=== PATIENT | female | born 1990 | race Caucasian/White ===

== ENCOUNTER → 2019-10-18 | Day surgery (SDC) | payer OTHER ==
[~2019-10-18] MED LIST: ACETAMINOPHEN 1000 MG/100 ML IV ONE; DEXAMETHASONE SOD PHOS 10 MG/1 ML VIAL ONE; DEXAMETHASONE SOD PHOS INJ 4 MG/ML VIAL ONE; FENTANYL CITRATE/PF 100MCG/2 ML INJ ONE; FLUOXETINE HCL10 MG PO; GLYCOPYRROLATE INJ 0.2 MG/ML VIAL ONE; LIDOCAINE 1% W/EPINEPHRINE 20 ML VIAL ONE; LIDOCAINE HCL 2% JELLY 5 ML TUBE ONE; LIDOCAINE HCL 2% LOCAL INJ 5 ML SDV VIAL INJ ONE; MIDAZOLAM HCL 2 MG/2 ML VIAL ONE; NEOSTIGMINE 1 MG/ML 10ML VIAL ONE; ONDANSETRON HCL INJ 2MG/ML 2ML 2 MG/ML VIAL ONE; PROPOFOL IV EMULSION 10 MG/ML 20 ML VIAL ONE; ROCURONIUM BROMIDE 10 MG/ML 5ML VIAL IV ONE; SEVOFLURANE INHAL SOLN 250 ML PEN BTL ONE
--- NOTE | 2019-10-18 08:55 | Pre Op History & Physical ---
DATE OF SURGERY: October 17, 2019. CHIEF COMPLAINT: Right thyroid nodule. HISTORY OF PRESENT ILLNESS: This 29-year-old female was noted to have a lesion in the right thyroid, which was quite noticeable. Mother also has a history of thyroid nodule. The patient when first seen in August of 2019, had no dysphagia, odynophagia, or hoarseness. The patient has no radiation to the head and neck area. An ultrasound of thyroid showed the patient has a 3.5 x 2.1 x 2.6 cm nodule in the right thyroid in the inferior pole and a 2 cm nodule in the left lobe. The patient initially was scheduled for surgery in August of 2019, however, that was canceled because of the coronavirus restriction on emergency surgery only. The patient over the past few weeks has noted that the right neck has been increasing in size and giving her dysphagia even though she has no choking. The patient was quite anxious about her swallowing. REVIEW OF SYSTEMS: System review showed no recent cardiovascular, respiratory, or GI problem. PAST MEDICAL HISTORY: The patient has no significant medical problem. PAST SURGICAL HISTORY: She has wisdom teeth extraction. ALLERGIES: SHE IS ALLERGIC TO BACTRIM, AUGMENTIN, AND SULFA. MEDICATIONS: She is on fluoxetine. SOCIAL HISTORY: She is a nonsmoker and nondrinker. FAMILY HISTORY: Noncontributory. Ms. Jackson has bilateral thyroid nodules. The larger one being on the right side and the right thyroid nodule seems to be increasing in size over the past few weeks and has been irritating the patient affecting her activity of daily living. The suggested treatment is right thyroidectomy, possible total thyroidectomy and other necessary procedure along with possible fine-needle aspiration of the left thyroid nodule and other necessary procedure. Complication of procedure includes but not limited to bleeding, infection, perforation of the esophagus, pneumomediastinum, mediastinitis, voice change, recurrent laryngeal nerve injury, trouble swallowing, dysphagia, wound breakdown, poor cosmetic result, persistent recurrence of the problem and hypercalcemia, hypocalcemia, hyperthyroidism, hypothyroidism, persistent recurrence of the problem. Alternatives will be continue observation, needle aspiration of the nodules on either side. Thyroid suppression therapy. The patient has elected to undergo surgical procedure. MD LAYNE Taylor/MODL /[id number] cc: Kyle Prieto MD
[2019-10-18 10:10] VITALS: BP 128/78
--- NOTE | 2019-10-18 11:31 | Operative Report ---
DATE OF PROCEDURE: 10/18/2019 SURGEON: Sukhwinder Bobo MD CHIEF COMPLAINT: Bilateral thyroid nodules, bigger one on the right side. POSTOPERATIVE DIAGNOSIS: Bilateral thyroid nodules, bigger one on the right side. OPERATIVE PROCEDURE: Right thyroidectomy and FNA of the left thyroid nodule with appropriate closure. ANESTHESIA: Anesthesiology Group. HISTORY OF PRESENT ILLNESS: This 29-year-old female was noted to have a lesion in the right thyroid, which is increasing in size. Ultrasound of the thyroid showed that the patient has bilateral nodules, the right side about 3.5 cm, left side about 2 cm. The prominent nodule was on the right side on examination. The patient has no dysphagia, odynophagia, or hoarseness even though over the past 2 or 3 weeks, the dysphagia seems to have increased. The patient also noted that the lesion seems to have been increasing in size. The patient has no radiation to the head and neck area. She has no family history of thyroid problem. She declined needle aspiration. It was decided that right thyroidectomy and a fine-needle aspiration of the left thyroid nodule and other necessary procedure will be beneficial for her. DESCRIPTION OF PROCEDURE: The patient was taken to operating room, put under general anesthesia, endotracheally intubated. The neck was injected with 1% Xylocaine with 1:100,000 epinephrine for hemostasis. Dissection was carried down to the subplatysmal plane. The superior and inferior flap were elevated. The strap muscle was identified and this was . The strap muscle was retracted laterally to the right side. The superior pole of the thyroid was dissected with the Harmonic scalpel. The thyroid gland was rotated inferiorly and medially. The superior parathyroid gland was not disturbed. Thyroid gland was delivered. The thyroid gland was transected in the isthmus using the Harmonic scalpel. The inferior pole of the thyroid was dissected from the surrounding soft tissue using the Harmonic scalpel. The inferior parathyroid gland was identified and not disturbed. The recurrent laryngeal nerve was identified, again this was not disturbed. The thyroid gland was dissected from the Perez's ligament and delivered, and sent for frozen section. The frozen section returned as adenomatous nodule. Using a 3 mL syringe and 21-gauge needle. The left thyroid nodule was addressed and the fine-needle aspiration was attempted on the left thyroid nodule. This was sent for cytology. Closure of the area was undertaken. The tracheoesophageal groove on the right side was irrigated with copious amount of normal saline. Any bleeding area was controlled using the bipolar cautery. The strap muscle was advanced in the midline and closed on itself using 3-0 Vicryl suture with one mattress suture. The platysmal flap that was elevated was advanced in the midline and closed on itself using 3-0 Vicryl suture in the interrupted fashion. The skin incision was closed using 4-0 Monocryl suture in the interrupted fashion. The pressure dressing was applied. The patient tolerated the above procedure well with minimal blood loss. She was able to be transferred to recovery room in stable condition. Sukhwinder Bobo MD DKH/MODL /[id number] cc: Kyle Prieto MD
== END | disposition home or self-care (01) ==
LOC: OR 06:09
PROVIDERS: ATTEND Otolaryngology Otolaryngology/Facial Plastic Surgery
DX: E04.1 Nontoxic single thyroid nodule (principal); F41.9 Anxiety disorder, unspecified; Z88.1 Allergy status to other antibiotic agents; Z88.0 Allergy status to penicillin; Z88.2 Allergy status to sulfonamides; Z01.812 Encounter for preprocedural laboratory examination; Z11.59 Encounter for screening for other viral diseases
CPT/HCPCS: 10021; 60220; 81025; 87635; 88307; 88331; J0131; J1100 ×2; J2001 ×2; J2250; J2405; J2704; J2710; J3010; 88305

== ENCOUNTER 2020-04-23 07:05 | Emergency (ER) | payer BC, OTHER ==
[~2020-04-23] VITALS: Ht 160 cm; Wt 102.1 kg
[~2020-04-23 07:05] MED LIST changes: -ACETAMINOPHEN 1000 MG/100 ML IV ONE; -DEXAMETHASONE SOD PHOS 10 MG/1 ML VIAL ONE; -DEXAMETHASONE SOD PHOS INJ 4 MG/ML VIAL ONE; -FENTANYL CITRATE/PF 100MCG/2 ML INJ ONE; -GLYCOPYRROLATE INJ 0.2 MG/ML VIAL ONE; -LIDOCAINE 1% W/EPINEPHRINE 20 ML VIAL ONE; -LIDOCAINE HCL 2% JELLY 5 ML TUBE ONE; -LIDOCAINE HCL 2% LOCAL INJ 5 ML SDV VIAL INJ ONE; -MIDAZOLAM HCL 2 MG/2 ML VIAL ONE; -NEOSTIGMINE 1 MG/ML 10ML VIAL ONE; -ONDANSETRON HCL INJ 2MG/ML 2ML 2 MG/ML VIAL ONE; -PROPOFOL IV EMULSION 10 MG/ML 20 ML VIAL ONE; -ROCURONIUM BROMIDE 10 MG/ML 5ML VIAL IV ONE; -SEVOFLURANE INHAL SOLN 250 ML PEN BTL ONE
[2020-04-23] MEDS ORDERED: KETOROLAC TROMETHAMINE 60 MG/2 ML VIAL IM ONE (07:30)
[2020-04-23] MEDS ORDERED: DIAZEPAM 5 MG TAB PO PRN (07:30)
[2020-04-23] MEDS ORDERED: DIAZEPAM 5 MG TAB PO ONE (08:00)
[2020-04-23] MEDS ORDERED: HYDROCODONE/APAP 5MG-325MG TAB PO ONE (08:00)
[2020-04-23] MEDS ORDERED: LIDOPATCH1 EACH TOP (09:17)
[2020-04-23] MEDS ORDERED: NAPROXEN250 MG PO (09:17)
[2020-04-23] MEDS ORDERED: ROBAXIN-750750 MG PO (09:17)
[2020-04-23] MEDS ORDERED: ULTRAM50 MG PO (09:17)
== END 2020-04-23 09:33 | disposition home or self-care (01) ==
LOC: ER 08:01
DX: M54.12 Radiculopathy, cervical region (principal); M62.838 Other muscle spasm
CPT/HCPCS: 72125; 99284; J1885

== ENCOUNTER 2020-04-29 10:35 | Emergency (ER) | payer BC ==
[~2020-04-29] VITALS: Ht 160 cm; Wt 102.1 kg
[~2020-04-29 10:35] MED LIST changes: +LIDOPATCH1 EACH TOP; +NAPROXEN250 MG PO; +ROBAXIN-750750 MG PO; +ULTRAM50 MG PO
[2020-04-29] MEDS ORDERED: DIAZEPAM 5 MG TAB PO PRN (11:00)
--- NOTE | 2020-04-29 11:03 | Emergency Department Note ---
History of Present Illnes History of Present Illness Chief Complaint: General Medicine Complaints History of Present Illness This is a 30 year old female arrives the ED with continued paresthesias of her left upper extremity that has not resolved. Patient was seen in the ED 3 days ago for similar . Onset (how long ago): day(s) Radiation: Reports non-radiation Duration (how long): day(s) Timing of current episode: intermittent Progression: unchanged Chronicity: new Context: Denies trauma/injury Past Medical/Family History Physician Review I have reviewed the patient's past medical and family history. Any updates have been documented here. Past Medical History Past Medical History: Asthma, Anxiety, Depression Other Surgery: THYROID SURGERY 08/2019 Social History Smoking Cessation: Never Smoker Review of Systems Review of Systems Constitutional: Reports no symptoms EENTM: Reports no symptoms Cardiovascular: Reports no symptoms Respiratory: Reports no symptoms Gastrointestinal: Reports no symptoms Genitourinary: Reports no symptoms Musculoskeletal: Reports no symptoms Integumentary: Reports no symptoms Neurological: Reports as per HPI, Reports paresthesia, Reports tingling; Denies headache, Denies numbness, Denies tremors, Denies weakness Psychological: Reports no symptoms Endocrine: Reports no symptoms Hematological/Lymphatic: Reports no symptoms Physical Exam Related Data Allergies: Coded Allergies: amoxicillin (Verified Allergy, Mild, 04/29/20) RASH clavulanic acid (Verified Allergy, Mild, 04/29/20) RASH sulfamethoxazole (Verified Allergy, Mild, 04/29/20) NAUSEA trimethoprim (Verified Allergy, Mild, 04/29/20) NAUSEA Sulfa (Sulfonamide Antibiotics) (Verified Allergy, Unknown, 04/29/20) Vital signs reviewed: Yes Physical Exam CONSTITUTIONAL Constitutional: Present well-developed, Present well-nourished HENT HENT: Present normocephalic, Present atraumatic, Present oropharynx clear/moist, Present nose normal HENT L/R: Present left ext ear normal, Present right ext ear normal EYES Eyes: Reports PERRL, Reports conjunctivae normal NECK Neck: Present ROM normal PULMONARY Pulmonary: Present effort normal, Present breath sounds normal CARDIOVASCULAR Cardiovascular: Present regular rhythm, Present heart sounds normal, Present capillary refill normal, Present normal rate GASTROINTESTINAL Abdominal: Present soft, Present nontender, Present bowel sounds normal GENITOURINARY Genitourinary: Present exam deferred SKIN Skin: Present warm, Present dry MUSCULOSKELETAL Musculoskeletal: Present tenderness; Absent swelling (+tenderness over trazpezius, +SCM ropey muscle spasm ) NEUROLOGICAL Neurological: Present alert, Present oriented x 3, Present no gross motor or sensory deficits PSYCHOLOGICAL Psychological: Present mood/affect normal, Present judgement normal Results Imaging Imaging results reviewed: Yes Impressions IMPRESSION: 1. No intracranial abnormality. 2. Normal cervical and intracranial CTA. Assessment & Plan Medical Decision Making MDM This 30-year-old female patient medical history presents with paresthesias, most likely due to cervical radiculopathy. Differential diagnoses includes cervical spine stenosis, muscle spasm, muscle strain/sprain. Presentation not consistent with emergent neurologic etiologies to include brain / spinal cord nerve root or nerve problem given history & physical. Presentation not consistent with immune phenomenon to include GBS or vasculitis. Presentation not consistent with toxins to include botulism, diptheria, tick-borne illnesses, heavy metal poisoning. Presentation not consistent with acute drug toxicity or metabolic issues. Plan: labs- CBC, CMP, CTA brain and neck, supportive care, reassessment Given History, Exam the patient appears to have a cervical radiculopathy. Patient appears to be low risk for complications or other emergent conditions such as anginal equivalent, janes cervical instability, arterial dissection, osteomyelitis, epidural abscess, central cord syndrome, c-spine fracture, other spinal emergencies Assessment & Plan Final Impression: (1) Cervical radiculopathy (2) Trapezius muscle spasm Depart Disposition: HOME, SELF-prison Meds Active Scripts Diazepam (VALIUM) 2 Mg Tablet, 5 MG PO Q6HR PRN for MUSCLE SPASMS, #20 0 Refills Prov:EDERRENRIQUETA, DO 04/29/20 Tramadol Hcl (ULTRAM) 50 Mg Tablet, 50 MG PO Q6HR PRN for MUSCLE SPASMS, #14 TAB Prov:SANDYANELYRENRIQUETA, DO 04/23/20 Lidocaine/Menthol (LIDOPATCH) 1 Each Adh..patch, 1 PATCH TOP DAILY, #12 PATCH Prov:EDERRLARRYICA, DO 04/23/20 Naproxen (NAPROXEN) 250 Mg Tablet, 250 MG PO BID, #20 TAB Prov:SANDYANELYRLARRYICA, DO 04/23/20 Methocarbamol (ROBAXIN-750) 750 Mg Tablet, 750 MG PO Q8HR PRN for MUSCLE SPASMS, #14 Prov:ENRIQUETA DAVID DO 04/23/20 Reported Medications Fluoxetine Hcl (FLUOXETINE HCL) 10 Mg Capsule, 20 MG PO DAILY, #30 CAP 10/17/19 ENRIQUETA DAVID DO Apr 29, 2020 11:03
[2020-04-29 11:04] LABS: BASOPHILS % 0.4 % (0.0-1.0); EOSINOPHILS # (AUTO) 0.3 (0.0-0.4); EOSINOPHILS % 3.2 % (0.0-6.0); HEMOGLOBIN 13.7 g/dL (12.0-16.0); LYMPHOCYTES # (AUTO) 1.8 (1.0-3.2); LYMPHOCYTES % 22.7 % (18.0-39.1); MEAN CORPUSCULAR HGB CONC 33.4 g/dL (31-35); MEAN CORPUSCULAR VOLUME 86.7 fL (81-99); MONOCYTES # (AUTO) 0.4 (0.2-0.8); MONOCYTES % 5.6 % (4.4-11.3); NEUTROPHILS # (AUTO) 5.3 (2.1-6.9); PLATELET COUNT 282 x10e3/uL (140-360); RED BLOOD COUNT 4.73 x10e6/uL (3.6-5.1); RED CELL DISTRIBUTION WIDTH 12.4 % (11.7-14.4)
--- OUTSIDE RECORDS SUMMARY | 2020-04-29 11:19 | XMS REPORT | Clinical Summary ---
Author Author [facility] Organization [facility] Address Unknown Phone Unavailable Care Team Providers Care Director Of Collections Name Role Phone Kyle Prieto MD PCP Allergies Not on File Medications Not on file Active Problems Not on file Encounters Care Team Description Date Type Specialty 09/08/2019 Travel Sukhwinder Bobo MD Coughing (Primary Dx) 09/08/2019 Transcribe Access Orders after 04/29/2019 Social History Date Tobacco Use Types Packs/Day Years Used Never Assessed Sex Assigned at Date Recorded Not on file Last Filed Vital Signs Not on file Plan of Treatment Health Maintenance Due Date Last Done Comments CERVICAL CANCER SCREENING 2012 INFLUENZA VACCINE 01/21/2020 Procedures Comments Procedure Name Priority Date/Time Associated Diag nosis XR CHEST 2 VW Routine 09/08/2019 Coughing 5:05 PM CDT after 04/29/2019 Results * XR Chest 2 Vw (09/08/2019 5:05 PM CDT) Specimen Narrative Performed At EXAMINATION: XR CHEST 2 VW [facility] CLINICAL HISTORY: R05 Cough, COUGHING COMPARISON: None. IMPRESSION: 1.Lungs are clear. 2.Mediastinal contours and cardiac silh ouette are unremarkable. 3.No acute osseous abnormality. [id number] Procedure Note Hm Interface, Radiology Results Incoming - 09/08/2019 5:09 PM CDT EXAMINATION: XR CHEST 2 VW CLINICAL HISTORY: R05 Cough, COUGHING COMPARISON: None. IMPRESSION: 1.Lungs are clear. 2.Mediastinal contours and cardiac silho uette are unremarkable. 3.No acute osseous abnormality. 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
--- OUTSIDE RECORDS SUMMARY | 2020-04-29 11:19 | XMS REPORT | Continuity of Care Document ---
Author Author [facility] t Organization [facility] Address [address] [place] [address] Phone Unavailable Care Team Providers Care Rim Roller Setter Name Role Phone MD EBEN FUNESH PCP Kirsten DAVID Attphys Unavailable JAROD DOWNEY Attphys Unavailable Payers Payer Name Policy Type Policy Number Effective Date Expiration Date [place] [facility] [id number] 2019 00:00:00 [facility] AETNAAETNA HMO,POS,EPO, [id number] 2016-PresentHMO [id number] 2017 00:00:00 [place] [employer] Problems Condition Name Condition Details Condition Category Status Onset Date Resolution Date Last Treatment Date Treating Clinician Comments Source Trapezius muscle spasm Problem Active [facility] Cervical radiculopathy Problem Active [facility] Allergies, Adverse Reactions, Alerts Allergy Name Allergy Type Status Severity Reaction(s) Onset Date Inacti ve Date Treating Clinician Comments Source Sulfa (Sulfonamide Antibiotics) Allergy to substance Active 2020-04-23 00:00:00 [facility] clavulanic acid Allergy to substance Active Mild 2020-04-23 00:0 0:00 [facility] Sulfamethoxazole Allergy to substance Active Mild 2020-04-23 00: 00:00 [facility] Trimethoprim Allergy to substance Active Mild 2020-04-23 00:00:0 0 [facility] Amoxicillin Allergy to substance Active Mild 2020-04-23 00:00:00 [facility] Social History Social Habit Start Date Stop Date Quantity Comments Source Sex Assigned At [facility] Medications Ordered Medication Name Filled Medication Name Start Date Stop Da te Current Medication? Ordering Clinician Indication Dosage Frequency Signature (SIG) Comments Components Source Lidocaine/Menthol (Lidopatch) 1 Each ADH..PATCH Lidoca ine/Menthol (Lidopatch) 1 Each ADH..PATCH 2020-04-23 09:17:00 Yes 1 Daily [facility] Methocarbamol (Robaxin-750) 750 Mg TABLET Methocarbamo l (Robaxin-750) 750 Mg TABLET 2020-04-23 09:17:00 Yes 750 Ever y 8 Hours as needed for Muscle Spasms [facility] Naproxen Naproxen 2020-04-23 09:17:00 Yes 250 Twice A Day [facility] Tramadol Hcl (Ultram) 50 Mg TABLET Tramadol Hcl (Ultram) 50 Mg TABLET 2020-04-23 09:17:00 Yes 50 Every 6 Hours as needed for M uscle Spasms [facility] Fluoxetine Hcl Fluoxetine Hcl Yes 20 Daily [facility] Vital Signs Vital Name Observation Time Observation Value Comments Source Oxygen saturation by Pulse oximetry 2020-04-23 07:49:00 99 /min [facility] Weight 2020-04-23 07:09:00 225 [lb_av] [facility] BMI (Body Mass Index) 2020-04-23 07:09:00 39.9 kg/m2 [facility] Heart Rate 2019-10-18 11:10:00 84 /min [facility] Respiratory rate 2019-10-18 11:10:00 18 /min [facility] BP Systolic 2019-10-18 11:10:00 128 mm[Hg] [facility] BP Diastolic 2019-10-18 11:10:00 78 mm[Hg] [facility] Body Temperature 2019-10-18 10:10:00 97.4 [degF] [facility] Procedures Procedure Date / Time Performed Performing Clinician Sourcecilia e Computed tomography of cervical spine without contrast 2 00:00:00 [facility] FNA BX W/O IMG GDN 1ST LES 2019-10-18 00:00:00 C [facility] PARTIAL REMOVAL OF THYROID 2019-10-18 00:00:00 C [facility] XR CHEST 2 VW 2019-09-08 17:05:24 Jarod Downey [facility] Plan of Care Planned Activity Planned Date Details Comments Source Future Scheduled Test 2020-01-21 00:00:00 INFLUENZA VACCINE [code = INFLUENZA VACCINE] Bernard Denny Future Scheduled Test 2012 00:00:00 Screening for ramses gnant neoplasm of cervix (procedure) [code = 856344467] Bernard valverde Instructions Cervical Radiculopathy [facility] Encounters Start Date/Time End Date/Time Encounter Type Admission Type [facility] Facility Care Department Encounter ID Source 2020-04-23 08:01:00 2020-04-23 09:33:00 Departed Emergency Room 1 FRANKIE LARRYERNESTINA [facility] [id number] [facility] 2019-10-18 07:09:00 2019-10-18 07:09:00 Registered Surgical Day Care [facility] [id number] [facility] 2019-09-08 00:00:00 2019-09-08 00:00:00 Outpatient ZULMA DOWNEY [facility] [id number] Bernard Denny Results Test Description Test Time Test Comments Results Result Comments Source CT CERVICAL SPINE WO 2020-04-23 08:12:[address] [facility] 1990 Sex: F [facility] [address] [address] Patient Name: HARRISON LINDSEY MR #: [id number] : 1990 Age/Sex: 30/F Req #: [id number] Adm Physician: Ordered by: ENRIQUETA DAVID DO Report #: [id number] Location: ER Room/Bed: Procedure: [id number] CT/CT CERVICAL SPINE WO Exam Date: 04/23/20 Exam Time: 0740 REPORT STATUS: Signed CT CERVICAL SPINE WO HISTORY: Left-sided neck pain COMPARISON: None. TECHNIQUE: CT of the cervical spine without contrast. Sagittal and coronal reformations were created. One or more of the following dose reduction techniques were used: Automated exposure control, adjustment of the mA and/or kV according to patient size, and/or utilization of iterative reconstruction technique. FINDINGS: Cervical lordosis is straightened. There is no scoliosis or subluxation. No fractures, compression deformity, or destructive osseous lesions are seen. The craniocervical junction is intact. Evaluation of the spinal canal is limited due to beam hardening. The paravertebral and paraspinal soft tissues are unremarkable. Degenerative changes: The disc spaces are preserved. Incidental findings: The palatine tonsils are prominent. Approximately 2 cm hypodense left thyroid nodule is present. Enlarged empty sella is partially imaged. IMPRESSION: 1. No acute osseous abnormalities. 2. Cannot exclude ligament, spinal cord and or vascular abnormalities on the basis of this examination. 3. Incidental 2 cm left thyroid nodule. Further evaluation with nonemergent thyroid ultrasound is recommended. Signed by: Dr. Flako Gonzalez M.D. on 04/23/2020 8:18 AM Dictated By: FLAKO GONZALEZ MD 7 Transcribed By: JYOTI on 04/23/20817 COPY TO: ENRIQUETA DAVID DO Urine human chorionic gonadotropin (hCG) detection 2019-09-22 07:20:00 Test Item Urine Test (test code = 2106-3) NEGATIVE NEGATIVE [facility] than one hour [id number] 14:30:00* Test Item Value Reference Range Interpretation Comments Coronavirus (PCR) (test code = Coronavirus (PCR)) NOT DETECTED NOTD ETECTED SARS-COV2/RT-PCRNegative results do not preclude SARS-CoV-2 infection and should not be used as the sole basis for patient management decisions. Negative results must be combined with clinical observations, patient history, and epidemiologi caryn information. A false negative result may occur if a specimen is improperly c ollected, transported or handled.The limit of detection for this assay is 250 co pies/mLThe SARS-CoV-2 test is a rapid, real-time RT-PCR test intended for the qu alitative detection of nucleic acid from SARS-CoV-2 in nasopharyngeal swab speci men collected from individuals suspected of COVID-19 by their healthcare provide r. This test has not been Food and Drug Administration (FDA) cleared or approved and has been authorized by FDA under an Emergency Use Authorization (EUA). This EUA will be effective until the declaration that circumstances exist justifying the authorization of the emergency use of in vitro diagnostic test for detection and or diagnosis of COVID-19 is terminated under section 564(b) of the Act, or the the EUA is revoked under 564(g) of the ACT.Testing performed by [address] [address]
[2020-04-29 11:26] LABS: ALANINE AMINOTRANSFERASE 11 IU/L (0-55); ALBUMIN 4.2 g/dL (3.5-5.0); ALBUMIN/GLOBULIN RATIO 1.2 (0.8-2.0); ALKALINE PHOSPHATASE 54 IU/L (40-150); ANION GAP 13.4 mmol/L (8-16); BLOOD UREA NITROGEN 14 mg/dL (7-26); BUN/CREATININE RATIO 18 (6-25); CARBON DIOXIDE 25 mmol/L (22-29); CHLORIDE 106 mmol/L (98-107); CREATININE, SERUM 0.78 mg/dL (0.57-1.11); EST GLOMERULAR FILTRATION RATE > 60 ML/MIN (60-); GLUCOSE 75 mg/dL (74-118); POTASSIUM 4.4 mmol/L (3.5-5.1); SODIUM 140 mmol/L (136-145)
[2020-04-29] MEDS ORDERED: GABAPENTIN 300 MG CAP PO ONE (11:30)
[2020-04-29] MEDS ORDERED: HYDROCODONE/APAP 7.5MG-325MG 1 EA TAB PO PRN (14:00)
[2020-04-29] MEDS ORDERED: KETOROLAC TROMETHAMINE 30 MG/ML VIAL IV STA (14:08)
--- NOTE | 2020-04-29 14:38 | Diagnostic Imaging Report ---
Examination: Cervical and Intracranial CT Angiogram with Contrast History: paresthesias; left sided numbness and tingling. Comparison studies: None Technique: Transaxial noncontrast images from the skull base through the vertex were obtained. Sagittal and coronal reformatted images were done. Axial images were obtained from the thoracic inlet. Coronal and sagittal images reconstructed from the axial data. Intravenous contrast: 100 mL of Isovue 370. Degree of stenosis at the carotid bulbs, if present, will be calculated using NASCET criteria where the smallest diameter at the location of stenosis is compared to the diameter of the more distal non-diseased vessel lumen. Computer generated maximum intensity projection and 3D images of the cervical and intracranial anterior and posterior circulations were performed on a separate workstation. Dose modulation, iterative reconstruction, and/or weight based adjustment of the mA/kV was utilized to reduce the radiation dose to as low as reasonably achievable. Findings: CT Head: Scalp: No abnormalities. Bones: Intact. No fractures. No blastic or lytic lesions. Brain sulci: Appropriate for patient's age. Ventricles: Normal in size and configuration. No hydrocephalus. . Extra-axial space: No abnormalities. Parenchyma: No abnormal densities. No masses, hemorrhage, or acute or chronic cortical based vascular insults. Extra-axial spaces: No abnormal density or fluid collection. Suprasellar region: No abnormalities. Craniocervical junction: The foramen magnum is patent. No Chiari one malformation. CTA neck: Aortic arch and major vessels: Patent. Common carotid arteries: Patent Cervical carotid bifurcations: Right: Patent. Left :Patent. Internal carotid arteries: Right: Patent. Left: Patent. Vertebral arteries: Patent. CTA head: Internal carotid arteries: Patent.. Anterior cerebral arteries: Patent.. Middle cerebral arteries: Patent.. Posterior cerebral arteries: Patent. Vertebro-basilar system: Patent. Anatomical variants: Anterior communicating artery :Present Posterior communicating arteries: Not visualized. Vertebral arteries: Codominant. IMPRESSION: 1. No intracranial abnormality. 2. Normal cervical and intracranial CTA. Signed by: Dr. Kirti Mera M.D. on 04/29/2020 2:34 PM
[2020-04-29] MEDS ORDERED: SODIUM CHLORIDE 0.9% 100 ML ONE (15:07)
[2020-04-29] MEDS ORDERED: IOPAMIDOL 370 MG/ML 200 ML INFUS..BTL INJ ONE (15:07)
[2020-04-29] MEDS ORDERED: VALIUM2 MG PO (16:04)
== END 2020-04-29 16:19 | disposition home or self-care (01) ==
LOC: ER 11:16
DX: M54.12 Radiculopathy, cervical region (principal); M62.838 Other muscle spasm; F41.9 Anxiety disorder, unspecified; J45.909 Unspecified asthma, uncomplicated
CPT/HCPCS: 36415; 70496; 70498; 80053; 84702; 85025; 99283; J1885; J7050; Q9967